=== PATIENT | male | born 1945 | race Caucasian/White ===

== ENCOUNTER 2017-03-04 08:00 | Day surgery (SDC) | payer MEDICARE, OTHER ==
[~2017-03-04 08:00] MED LIST: Propofol 200 MG/20 ML SDV ONE; fentaNYL 100 MCG/2 ML SDV ONE
[2017-03-04] MEDS ORDERED: Dextrose 5%-Lactated Ringers 1,000 ML IV SCH (08:15)
[2017-03-04] MEDS ORDERED: Glycopyrrolate 0.2 MG/ML 2 ML SYRINGE IVPUSH ONE (09:00)
[2017-03-04 11:15] VITALS: BP 125/78
--- NOTE | 2017-03-10 16:15 | OR ---
DATE OF PROCEDURE: 03/04/2017 PREOPERATIVE DIAGNOSIS: Anemia. POSTOPERATIVE DIAGNOSIS: Anemia associated with: 1. Large uncomplicated hiatal hernia (1/3rd of stomach from chest). 2. Gross pre-pyloric gastritis. 3. Normal colonoscopy. PROCEDURE: 1. Esophagogastroduodenoscopy with antral biopsies for CLOtest. 2. Flexible colonoscopy. ANESTHESIA: IV sedation. INDICATION FOR PROCEDURE: The patient is 71-year-old male presenting with some anemia along with relative iron deficiency. The plan is to proceed with upper and lower endoscopy with biopsies and polypectomy as indicated. Potential risks including bleeding and perforation were discussed, and the patient wishes to proceed. DETAILS OF PROCEDURE: Esophagogastroduodenoscopy: The patient was taken to the operating room and placed in the left lateral decubitus position. The upper GI endoscope was then passed orally through the length of the esophagus, into the stomach, with retroflexion view of the fundus, thereafter through the pyloric channel and into the proximal duodenum. Findings included normal proximal esophagus, however, the patient had a very large hiatal hernia with roughly 1/3rd of the stomach up in the chest. This was not associated with any significant gross inflammation, however, and did not have any upward extension of the gastroesophageal mucosal line above the upper gastric folds, i.e., no suggestion of Le esophagus and the lumen of the stomach well dilated and the area above the diaphragm did not appear to be angulated i.e., this appeared to be a large sliding hiatal hernia as opposed to paraesophageal hernia. Within the remainder of the stomach, there was some patchy red areas with some tiny erosions in the pre-pyloric area. The pyloric channel and duodenum to the junction of the third and fourth portions were unremarkable. No blood or bleeding was seen in the upper GI exam, but the pre-pyloric erosions which may be suggestive a site of GI blood loss. After CLOtest was obtained, the gastroscope was removed and attention was taken to the colonoscopy. Colonoscopy: The initial digital rectal exam was performed that then showed some prostatic hypertrophy more or less in a diffuse pattern. The scope was then passed to the level of cecum. The prep was fairly good with only being a small amount of liquid stool present, to that level no abnormalities were noted. Specifically, there were no areas of colitis, no diverticular disease, and no polyps or other signs of neoplasia. The scope was then withdrawn. The above findings were reconfirmed, and the procedure was then concluded. The patient was taken to the recovery room in satisfactory condition. The patient presently is on omeprazole 20 mg a day. He had been on Naprosyn 500 mg b.i.d., with the last dose around 5 days ago. The patient will be continued on omeprazole, and he is instructed to try to limit the Naprosyn use. If he finds and he needs something like that either increasing the PPI dosage and/or switching to something like Celebrex would be the options of general medical management. Followup will be with Dr. Vera in the [facility] in about 2 weeks. If the CLOtest is positive, the patient will be contacted and will be started on antibiotic course for Helicobacter pylori. Giovani Enrique MD /[id number]
== END 2017-03-04 12:00 | disposition home or self-care (01) ==
LOC: JP.SDS 08:00
PROVIDERS: ATTEND Surgery
PROC: 0DJD8ZZ Inspection of Lower Intestinal Tract, Via Natural or Artificial Opening Endoscopic (ICD-10-PCS; principal; 2017-03-04)
PROC: 0DB68ZX Excision of Stomach, Via Natural or Artificial Opening Endoscopic, Diagnostic (ICD-10-PCS; 2017-03-04)
DX: D64.9 Anemia, unspecified (principal); K29.70 Gastritis, unspecified, without bleeding; K44.9 Diaphragmatic hernia without obstruction or gangrene
CPT/HCPCS: 43239; 45378; 87081; J2704; J3010; J7042